=== PATIENT | female | born 1940 | race African-American/Black ===

== ENCOUNTER 2018-03-05 05:32 | Inpatient (IN) | payer OTHER ==
[2018-02-21 09:34] LABS: URINE BILIRUBIN NEGATIVE (Negative); URINE BLOOD NEGATIVE (Negative); URINE CLARITY CLEAR; URINE COLOR YELLOW; URINE GLUCOSE-RANDOM* NEGATIVE (Negative); URINE KETONES NEGATIVE (Negative); URINE LEUKOCYTES-REFLEX NEGATIVE (Negative); URINE PROTEIN (DIPSTICK) NEGATIVE (Negative); URINE SPECIFIC GRAVITY >= 1.030 (1.005-1.035); URINE UROBILINOGEN 0.2 E.U./dl (0.2-1.0)
[2018-02-21 09:35] LABS: HEMATOCRIT 33.3 % (37.0-47.0); HEMOGLOBIN 10.9 gm/dL (12.0-15.0); MCH 25.9 pg (26.0-34.0); MCHC 32.6 g/dL (28.0-37.0); MCV 79.3 fL (80.0-100.0); RBC 4.2 mil/uL (4.20-5.00); RDW 16.7 % (10.5-14.5); WBC 9.5 thou/uL (4.0-11.0)
[2018-02-21 09:36] LABS: URINE NITRITE-REFLEX POSITIVE (Negative)
[2018-02-21 09:40] LABS: CASTS None Seen /LPF (None Seen); SQUAMOUS 4-10 Moderate /LPF (0-3)
[2018-02-21 09:41] LABS: BACTERIA-REFLEX >30 Many /HPF (None Seen); CRYSTALS None Seen /LPF (None Seen); URINE RBC 0-2 Rare /HPF (0-2); URINE WBC-REFLEX 0-5 Rare /HPF (0-5)
[2018-02-21 09:42] LABS: INR 1.7; PROTIME 17.9 Seconds (9.3-11.4)
[2018-02-21 09:47] LABS: ALBUMIN 3.5 g/dL (3.4-5.0); CALCIUM 9.5 mg/dL (8.5-10.1); CREATININE 1.5 mg/dL (0.6-1.0); POTASSIUM 4.2 mmol/L (3.5-5.1); TOTAL BILIRUBIN 0.3 mg/dL (<0.1-1.0); TOTAL PROTEIN 7.1 g/dL (6.4-8.2)
[~2018-03-05] VITALS: Ht 154.9 cm; Wt 125.7 kg
--- NOTE | ~2018-03-05 | O ---
[facility] [place] [address] OPERATIVE REPORT Name: LEX ALTAMIRANO Room #: 150-5 ADM IN M.R.#: [id number] Admission: 03/05/18 Attend Phys: Adan Dias MD Discharge: Date of : 42 Report #: [id number] THIS REPORT FOR: //name// CC: Adan Sanchez DATE OF SERVICE: 03/05/2018 PREOPERATIVE DIAGNOSIS: End-stage degenerative osteoarthritis, right hip. POSTOPERATIVE DIAGNOSIS: End-stage degenerative osteoarthritis, right hip. PROCEDURE: Right total hip arthroplasty. SURGEON: Adan Dias MD INDICATIONS: This 78-year-old female is obese and deconditioned and has severe degenerative osteoarthritis of the right hip. She and family have discussed treatment options and elected to go ahead with total hip arthroplasty. DESCRIPTION OF PROCEDURE: The patient was taken to the operating room where she was placed under general anesthesia. Prophylactic intravenous antibiotics were administered. She was turned to the left lateral decubitus position. The right hip, thigh, and leg were meticulously prepped and draped. A slightly curving posterolateral skin incision was made. This was carried through abundant adipose tissue, making dissection and the remainder of the procedure difficult. The fascia was exposed and incised. The posterior aspect of the hip joint was visualized. The short external rotators and capsule were taken down and preserved and tagged with several #1 Tevdek sutures. The hip was dislocated and marked degenerative change on both the femoral head and acetabulum was noted. A femoral neck osteotomy was performed. The Vora and Nephew hip system was utilized. Intramedullary reamers and hand broaches were then inserted, a size 11 stem seemed to fit most appropriately. The calcar was trimmed to an appropriate level. Attention was then directed to the acetabulum, which was sequentially reamed, gradually advancing to a 52 mm reamer. A Vora and Nephew size 52 StikTite shell was then inserted, placing this in alignment with her true acetabulum at about 45 degrees off of vertical and about 20 degrees of anteversion. It seated nicely and appeared to be secure. In addition, 2 cancellous screws were placed through the apex of the shell, engaging good periacetabular bone. A 36-mm diameter acetabular liner was then inserted, positioning the 20-degree elevated rim at about the 10 o'clock posterior position, snapped into place and seated nicely and appeared to be secure. The permanent Vora and Nephew size 11 Synergy femoral component was then inserted, positioning this in about 15-20 degrees of anteversion. It seated nicely and appeared to be secure. A trial reduction was performed and a +4 mm neck length seemed to fit most appropriately. This resulted in satisfactory alignment, [address] [address] OPERATIVE REPORT Name: LEX ALTAMIRANO Room #: 150-5 [facility] IN M.R.#: [id number] Admission: 03/05/18 Attend Phys: Adan Dias MD Discharge: Date of : 42 Report #: [id number] range of motion and stability. A cobalt chrome 36 mm head was then inserted using the +4 mm neck length. The head seated nicely and appeared to be secure. The hip was reduced. Alignment, range of motion and stability were assessed and felt to be satisfactory. Leg lengths seemed to be symmetric with the opposite side. The short external rotators and capsule were then repaired back to bone using #1 Tevdek sutures, passed through drill holes in the greater trochanter. A single Hemovac was left in the wound, exiting through a separate stab incision. The fascia was closed with multiple #1 Vicryl sutures. The abundant adipose layer was closed with multiple running 0 Monocryl sutures. The skin was closed with skin dahlia. A sterile dressing was applied. The patient was awakened and returned to recovery room in good condition. <ELECTRONICALLY SIGNED> By: Adan Dias MD 03/05/18 1150 [id number] Adan Dias MD /nt
[~2018-03-05 05:32] MED LIST: ADVAIR 100-501 EACH INH; ASPIR 8181 MG PO; CARDIZEM CD 18180 M3 PO; CHLORTHALIDONE25 MG PO; COREG25 MG PO; COUMADIN 5 MG TA5 M1 PO; COUMADIN7.5 MG PO; CYCLOBENZAPRINE5 MG PO; CYMBALTA30 MG PO; DILTIAZEM 24HR180 M3 PO; GABAPENTIN 100100 MG PO; HYDRALAZINE 2525 MG PO; IMDUR 30 MG TAB30 M1 PO; LASIX 40 MG TAB40 M2 PO; NEXIUM40 MG PO; NITROMIST4.1 GM SUBLING; PROAIR HFA8.5 GM INH; SINGULAIR 10 MG10 M1 PO; TRAMADOL 50 MG50 MG PO; TYLENOL325 M1 PO; VESICARE10 M1 PO; VITAMIN D31000 UNIT PO; ZOCOR20 MG PO
[2018-03-05 07:22] LABS: PROTIME 10.9 Seconds (9.3-11.4)
[2018-03-05 07:44] VITALS: BP 117/74
[2018-03-05 16:17] VITALS: BP 140/68
[2018-03-05 19:56] VITALS: BP 144/67
[2018-03-06 04:14] VITALS: BP 152/55
[2018-03-06 06:09] LABS: HEMOGLOBIN 9.1 gm/dL (12.0-15.0); MCH 24.9 pg (26.0-34.0); MCHC 31.5 g/dL (28.0-37.0); RBC 3.67 mil/uL (4.20-5.00); RDW 16.5 % (10.5-14.5); WBC 15.4 thou/uL (4.0-11.0)
[2018-03-06 08:16] LABS: CALCIUM 8.2 mg/dL (8.5-10.1); CREATININE 1.2 mg/dL (0.6-1.0); MAGNESIUM 1.5 mg/dL (1.8-2.4); POTASSIUM 3.7 mmol/L (3.5-5.1)
[2018-03-06 08:29] LABS: URINE BILIRUBIN NEGATIVE (Negative); URINE BLOOD 1+ (Negative); URINE CLARITY CLEAR; URINE COLOR YELLOW; URINE GLUCOSE-RANDOM* NEGATIVE (Negative); URINE KETONES NEGATIVE (Negative); URINE LEUKOCYTES-REFLEX NEGATIVE (Negative); URINE NITRITE-REFLEX POSITIVE (Negative); URINE PROTEIN (DIPSTICK) NEGATIVE (Negative); URINE SPECIFIC GRAVITY 1.025 (1.005-1.035); URINE UROBILINOGEN 0.2 E.U./dl (0.2-1.0)
[2018-03-06 08:32] VITALS: BP 129/62
[2018-03-06 08:54] LABS: CASTS None Seen /LPF (None Seen); SQUAMOUS 4-10 Moderate /LPF (0-3)
[2018-03-06 08:55] LABS: BACTERIA-REFLEX >30 Many /HPF (None Seen); CRYSTALS None Seen /LPF (None Seen); URINE RBC 0-2 Rare /HPF (0-2); URINE WBC-REFLEX 0-5 Rare /HPF (0-5)
[2018-03-06 08:59] LABS: INR 1.1; PROTIME 11.4 Seconds (9.3-11.4)
[2018-03-06 11:53] VITALS: BP 102/62
[2018-03-06 16:17] VITALS: BP 149/63
[2018-03-06 19:55] VITALS: BP 143/70
[2018-03-07 06:54] LABS: HEMATOCRIT 28.4 % (37.0-47.0); HEMOGLOBIN 9.2 gm/dL (12.0-15.0); MCH 25.5 pg (26.0-34.0); MCHC 32.2 g/dL (28.0-37.0); MCV 79.1 fL (80.0-100.0); RBC 3.59 mil/uL (4.20-5.00); RDW 16.2 % (10.5-14.5); WBC 17.9 thou/uL (4.0-11.0)
[2018-03-07 07:07] LABS: INR 1.1; PROTIME 11.6 Seconds (9.3-11.4)
[2018-03-07 07:20] VITALS: BP 128/56
[2018-03-07 12:07] LABS: CALCIUM 8.3 mg/dL (8.5-10.1); CREATININE 1.5 mg/dL (0.6-1.0); POTASSIUM 4.2 mmol/L (3.5-5.1)
[2018-03-07 19:32] VITALS: BP 139/51
[2018-03-08 07:16] LABS: HEMATOCRIT 25.4 % (37.0-47.0); HEMOGLOBIN 8.1 gm/dL (12.0-15.0); MCH 25.3 pg (26.0-34.0); MCHC 31.8 g/dL (28.0-37.0); MCV 79.7 fL (80.0-100.0); RBC 3.19 mil/uL (4.20-5.00); RDW 16.4 % (10.5-14.5); WBC 15.2 thou/uL (4.0-11.0)
[2018-03-08 07:43] LABS: INR 1.1; PROTIME 11.3 Seconds (9.3-11.4)
[2018-03-08 08:34] VITALS: BP 130/60
[2018-03-08] MEDS ORDERED: CEFUROXIME500 MG PO (08:47)
== END 2018-03-08 14:43 | DRG 853 ==
LOC: TBA 05:32 → 4E 05:32 → PRE 05:39 → 4E 11:53 → PRE 14:11 → SICU 03-06 17:00
PROVIDERS: Nurse Practitioner; Nurse Practitioner Acute Care; Orthopaedic Surgery
PROC: 0SR901Z Replacement of Right Hip Joint with Metal Synthetic Substitute, Open Approach (ICD-10-PCS; principal; 2018-03-05)
DX: A41.9 Sepsis, unspecified organism (principal); N17.0 Acute kidney failure with tubular necrosis; N39.0 Urinary tract infection, site not specified; M16.11 Unilateral primary osteoarthritis, right hip; I10 Essential (primary) hypertension; I48.91 Unspecified atrial fibrillation; B96.20 Unspecified Escherichia coli [E. coli] as the cause of diseases classified elsewhere; J45.909 Unspecified asthma, uncomplicated; K21.9 Gastro-esophageal reflux disease without esophagitis; E78.5 Hyperlipidemia, unspecified; G47.33 Obstructive sleep apnea (adult) (pediatric); Z88.8 Allergy status to other drugs, medicaments and biological substances; Z88.6 Allergy status to analgesic agent; Z91.041 Radiographic dye allergy status; Z91.040 Latex allergy status; Z79.01 Long term (current) use of anticoagulants; Z79.899 Other long term (current) drug therapy
CPT/HCPCS: 10783; 15002; 50010; 50101; 50382; 50414; 51412; 53000; 53367; 56521; 56525; 56527; 57095; 62110; 62900; 70005